=== PATIENT | female | born 1970 | race Caucasian/White ===

== ENCOUNTER 2019-01-02 19:32 | Observation (INO) ==
[2019-01-02] MEDS ORDERED: SODIUM CHLORIDE 0.9% 1,000 ML IV STA (20:05)
[2019-01-02] MEDS ORDERED: ONDANSETRON 4 MG/2 ML VIAL IV STA (20:05)
[2019-01-02] MEDS ORDERED: ONDANSETRON 4 MG/2 ML VIAL ONE (20:08)
[2019-01-02 20:13] LABS: Basophils % 0.6 % (0.0-0.8); Eosinophils # 0.7 10*3/uL (0.0-0.87); Eosinophils % 11.2 % (0.00-10.9); Hematocrit 42.3 VOL% (35.7-47.0); Hemoglobin 14.1 GM/DL (12.0-16.0); Immature Granulocytes % 0.3 %; Immature Granulocytes Absolute 0.02 #; Lymphocytes # 3.2 10*3/uL (1.4-4.0); Lymphocytes % 50.5 % (21.3-54.2); Mean Corpuscular HGB Conc 33.3 GM/DL (32-36); Mean Corpuscular Volume 93.8 FL (87-102); Mean Platelet Volume 9.7 FL (9.6-12.0); Monocytes % 5.4 % (1.7-12.7); Platelet Count 271 T/CUMM (130-400); Red Blood Count 4.51 MC/CUMM (3.8-5.5); White Blood Count 6.3 T/CUMM (4-12)
[2019-01-02 20:29] LABS: PT Patient Result 10.9 SECS (9.6-12.2)
[2019-01-02 20:31] LABS: Bilirubin,Total 0.6 MG/DL (0.2-1.0); Calcium 9.3 MG/DL (8.5-10.1); Osmolality,Calculated 277.5 MOS/KG (273-304); Total Protein 7.1 G/DL (6.4-8.3)
[2019-01-02 20:39] LABS: Eosinophils 11 % (0-10); Lymphocytes 54 % (20-55); Segmented Neutrophils 29 % (50-85); Total Cells Counted 100
[2019-01-02 20:41] LABS: Hypochromasia Slight; Platelet Estimate Normal
[2019-01-02 20:42] LABS: Anisocytosis Slight
[2019-01-02 20:47] LABS: Apearance,Urine CLEAR (Clear); Bilirubin,Urine Negative (Negative); Blood, Urine Negative (Negative); Glucose,Urine (UA) Negative (Negative); Ketones,Urine Negative (Negative); Nitrite,Urine Negative (Negative); Protein,Urine Negative; RBC,Urine <1 /HPF (0-4); Squamous Epithelial Cell,Urine Occasional /HPF (0-10); Urine Color Straw (Yellow); Urine Specific Gravity 1.006 (1.001-1.035); Urine Urobilinogen < 2.0 EU/DL (0.2-1.0); WBC,Urine 2 /HPF (0-6)
[2019-01-02 20:55] LABS: Barbiturates Screen,Urine Negative (Negative); Benzodiazepines Screen,Urine Negative (Negative); Cannabinoid Screen,Urine Negative (Negative); Opiate Screen,Urine Negative (Negative); Phencyclidine Screen,Urine Negative (Negative)
[2019-01-02] MEDS ORDERED: guaiFENesin/DM ER 600-30 MG TABLET PO PRN (21:47)
[2019-01-02] MEDS ORDERED: ACETAMINOPHEN 325 MG TABLET PO PRN (21:47)
[2019-01-02] MEDS ORDERED: NICOTINE 21 MG/24 HR PATCH TRANSDERM PRN (21:47)
[2019-01-02] MEDS ORDERED: ONDANSETRON 4 MG/2 ML VIAL IV PRN (21:47)
[2019-01-02 22:16] LABS: Risk Ratio 3.37; Thyroid Stimulating Hormone 4.21 uIU/ml (0.358-3.74); VLDL CHOLESTEROL 20.2 MG/DL
[2019-01-03] MEDS: SODIUM CHLORIDE 0.9% 1,000 ML IV SCH ×3 (00:28→18:17)
[2019-01-03 05:23] LABS: Basophils % 0.7 % (0.0-0.8); Eosinophils # 0.8 10*3/uL (0.0-0.87); Hematocrit 38.3 VOL% (35.7-47.0); Hemoglobin 12.5 GM/DL (12.0-16.0); Immature Granulocytes % 0.2 %; Immature Granulocytes Absolute 0.01 #; Lymphocytes # 3.1 10*3/uL (1.4-4.0); Mean Corpuscular HGB Conc 32.6 GM/DL (32-36); Mean Corpuscular Volume 94.6 FL (87-102); Mean Platelet Volume 10.6 FL (9.6-12.0); Monocytes % 5.3 % (1.7-12.7); Neutrophils % 29.8 % (38.7-73.9); Platelet Count 234 T/CUMM (130-400); Red Blood Count 4.05 MC/CUMM (3.8-5.5); Red Cell Distribution Width 12.1 % (9.3-17.3)
[2019-01-03 05:46] LABS: Band Neutrophils 1 % (0-10); Eosinophils 16 % (0-10); Hypochromasia Slight; Lymphocytes 50 % (20-55); Platelet Estimate Adequate; Segmented Neutrophils 31 % (50-85); Total Cells Counted 100
[2019-01-03 05:47] LABS: Atypical Lymphocytes Few
[2019-01-03 05:56] LABS: Albumin 3.4 G/DL (3.4-5.0); Bilirubin,Total 0.4 MG/DL (0.2-1.0); Calcium 8.7 MG/DL (8.5-10.1); Osmolality,Calculated 286.7 MOS/KG (273-304); Total Protein 6.4 G/DL (6.4-8.3)
[2019-01-03] MEDS ORDERED: PANTOPRAZOLE 40 MG TABLET PO SCH (09:00)
[2019-01-03 16:25] VITALS: BP 111/66
== END 2019-01-03 18:12 | disposition home or self-care (01) ==
LOC: N.EDINP 19:32 → N.ED 19:32 → N.TELEN 23:00
PROVIDERS: ADMIT Internal Medicine Geriatric Medicine; ATTEND Internal Medicine Geriatric Medicine